=== PATIENT | female | born 1990 | race African-American/Black ===

== ENCOUNTER 2022-02-23 00:35 | Outpatient (CLI) | payer BC, MEDICAID, SELFPAY ==
[2022-02-23] VITALS (79 sets, daily range): BP systolic 108–144; BP diastolic 58–82; PULSE 75–114; RESP 15–16; TEMP 36.2–36.6; O2SAT 87–100; BMI 38.9
[2022-02-23] MEDS: oxytocin 30 UNIT/500 ML BAG 600 UNIT IV (00:35)
[2022-02-23] MEDS: lactated ringers 1,000 ML 999 ML IV (00:35)
--- NOTE | 2022-02-23 00:35 | PC.NURSE ---
Baby Les Thomas arrived with patient. Mother delivered on 02/22/22 at 2220. This was a planned unassisted freebirth. Placenta delivered at 2225 and significant bleeding was observed. Patient arrived via private vehicle at 0035. Heavy bleeding observed, IV inserted, LR bolus and PP oxytocin started. Baby was assessed by MACIEJ Silva Vitals: Heartrate 133 Respirations 40 SpO2 100% on RA Temperature 98.6 Rectal. Physical Assessment Unremarkable, no distress noted. Baby not admitted per parental wishes. Nursing care provided to mother.
[2022-02-23 00:54] LABS: Basophils % 0.2 %; Hemoglobin 9.7 g/dL (11.5-15.3); Lymphocytes # 1.8 10^3/uL (0.8-4.8); Lymphocytes % 8.5 %; Mean Corpuscular HGB Conc 32.3 g/dL (30.0-36.0); Mean Corpuscular Hemoglobin 27.4 pg (28.0-34.0); Mean Corpuscular Volume 84.7 fl (81-99); Mean Platelet Volume 11.2 fL (7.4-10.4); Monocytes # 0.7 10^3/uL (0.2-0.9); Monocytes % 3.3 %; Neutrophils # 17.91 10^3/uL (1.8-7.7); Neutrophils % 86.9 %; Nucleated Red Blood Cells % 0 %; Platelet Count 286 10^3/cmm (130-400); Red Blood Count 3.54 10^6/uL (4.1-5.3); Red Cell Distribution Width 13.9 % (12.1-15.1); White Blood Count 20.6 10^3/uL (4.0-10.0)
[2022-02-23] MEDS: dextrose 5%-lactated ringers 1,000 ML 125 ML IV (03:14)
[2022-02-23] MEDS: acetaminophen 325 mg Tablet 650 MG PO ×2 (04:44→11:17)
--- NOTE | 2022-02-23 08:51 | P.HP_ITS ---
Providers/Chief Complaint Admitting Physician: Carissa Garcia MD Chief Complaint: Delivered at home, bleeding HPI ENVIRONMENTAL SERVICE AIDE History of Present Illness Diana Thomas is a 31 year old female Present Details : 6 Para: 6 Labs Rubella: Unknown RPR: Unknown GBS: Unknown Medications/Allergies Home Medications Medication Instructions Recorded Confirmed Last Taken Type Floradix 10 ml PO BID 02/23/22 02/23/22 02/22/22 History + Iron 1 tab PO DAILY 02/23/22 02/23/22 02/22/22 History Allergies Allergy/AdvReac Type Severity Reaction Status Date / Time No Known Allergies Allergy Verified 02/23/22 02:44 Vitals/I&O/Wt Last Vital Signs Temp 97.9 F 02/23/22 00:47 Pulse 89 02/23/22 08:18 Resp 15 02/23/22 00:47 BP 131/73 02/23/22 08:18 Pulse Ox 100 02/23/22 04:20 O2 Del Method 02/23/22 00:47 Weight last 48 hrs Weight 234 lb Weight 234 lb Physical Exam Resp: EFFORT & INSPECTION: Yes able to speak in complete sentences and Yes symmetric chest movement Cardio: RATE: regular rate RHYTHM: regular rhythm : EXTERNAL FEMALE EXAM: Yes normal appearance of the urethra, No externally tender and No laceration BIMANUAL EXAM - VAGINA & UTERUS: No cervical motion tenderness, No uterine size normal, Yes uterine mobility normal, No Uterine tenderness, Yes enlarged (Firm fundus still above the umbilicus) and No Uterus displaced OB/EXTERNAL & SPECULUM: external exam normal, Active bleeding present small/minimal and Cervical os open; no tissue noted in vagina, no vaginal laceration and vaginal bleeding Psych: COMMON NORMALS: mental status grossly normal, Normal thought process present, cooperative, normal affect, speech normal and activity/motor behavior normal MOOD & AFFECT: No depressed mood and No anxious INSIGHT: Good insight present (Psych) Data 02/23/22 10:29 Attestations Medical Necessity Statement*: Status post home complicated by hemorrhage that occurred off site. Upon arrival no way to assess quantity of blood loss and did not have pre-delivery Hgb. Current Hgb was indicative of acute anemia. Observation and management warranted. Antipated discharge for PPD #1. Coding Level of Care Code Acute Radio Frequency Design Engineer for Chg Fwd Exam Expanded Problem Focused Medical Decision Making Low Complexity Time Spent (min) 60 Comment PP Hemorrhage occurred s/p home- prior to reaching the hosp. Stable upon arrival.
[2022-02-23] MEDS: iron sucrose 500 MG in sodium chloride 0.9% 250 ML 68.75 MG IV (09:31)
[2022-02-23 10:45] LABS: Hematocrit 25.3 % (37.0-47.0); Mean Corpuscular HGB Conc 31.6 g/dL (30.0-36.0); Mean Corpuscular Hemoglobin 27.3 pg (28.0-34.0); Mean Corpuscular Volume 86.3 fl (81-99); Mean Platelet Volume 11.2 fL (7.4-10.4); Platelet Count 237 10^3/cmm (130-400); Red Blood Count 2.93 10^6/uL (4.1-5.3); Red Cell Distribution Width 13.8 % (12.1-15.1); White Blood Count 14.7 10^3/uL (4.0-10.0)
[2022-02-23] MEDS: docusate sodium 100 mg Capsule PO (11:17)
== END 2022-02-23 15:51 | disposition home or self-care (01) ==
LOC: OPOB 00:44 → OBGYN 00:45
PROVIDERS: Visit Provider Obstetrics & Gynecology
DX: O80 Encounter for full-term uncomplicated delivery (principal)
CPT/HCPCS: 36415; 85025; 85027; 86850; 86900; 99211; J1756; J7050

== ENCOUNTER 2025-06-06 19:45 | Emergency (ER) | payer BC, MEDICAID, SELFPAY ==
--- OUTSIDE RECORDS SUMMARY | 2025-06-06 19:52 | XMS_ITS | Clinical Summary ---
Author Organization [facility] Address [address] [place] [address] Phone Care Team Providers Care Route Clerk Name Role Phone Unavailable Primary Care Provider Unavailabl e Allergies No known active allergies Medications vits15/iron/fo lic/dss ( VIT 47-OOVO-YPOFJ- DSS ORAL) Take by mouth. Activ e ferrous sulfate (IRON ORAL) Take 3 Capsules by mouth daily. Floradix Active glycerin-witch Shirlene (AER WITCH SHIRLENE) 12.5-50 % Pads, Medicated Apply 1 Each to affected area see administration instructions. 4 Active modified lanolin (LANOLIN HFA) 100 % Cream Apply to affected area see administration instructions. 4 Active acetaminophen (TYLENOL) 325 mg tablet Take 2 Tablets (650 mg) by mouth every 6 hours as needed for Other (See Comment) (See admin instructions). 4 Active Active Problems Problem Noted Date Diagnosed Date care and examination of lactating mot her 03/10/2024 (spontaneous vaginal delivery) 03/08/2024 Urinary frequency 03/03/2024 Anemia in , third trimester 12/30/2023 Elevated glucose tolerance test 12/29/2023 Tetanus, diphtheria, and jaden llular pertussis (Tdap) vaccination declined 12/29/2023 care, subsequent , third trime ster 12/15/2023 Anemia affecting in second trimester 0 11/10/2023 Grand multiparity 11/10/2023 History of hemorrhage, currently preg nant 11/10/2023 BMI 35.0-39.9, pre- BMI 38.3 11/10/2023 Encounters Date Type Department Care Team Description 04/12/2025 External Device Data [facility] ABSTRACTION Provider, Abstract 04/12/2025 External Device Data [facility] Provider, Abstract 04/05/2025 External Device Data [facility]CTION Provider, Abstract from Last 3 Months Social History Tobacco Use Types Packs/Day Years Used Date Smoking Tobacco: Never Smokeless Tobacco: Never Tobacco Cessation:Counseling Given: Not Answered Alcohol Use Standard Drinks/Week Comments Not Currently 0 (1 standard drink = 0.6 oz pur e alcohol) Feeling Safe Answer Date Recorded Are you in a relationship wi th someone who hurts you emotionally and/or physically? Patient unable to answer 03/07/2024 Comments No Sex and Gender Information Value Date Recorded Sex Assigned at Not on file Legal Sex Female 9:19 AM CDT Gender Identity Not on file Sexual Orientation Not on file Last Filed Vital Signs Vital Sign Reading Time Taken Comments Blood Pressure 116/82 04/21/2024 1:03 PM EXHAUST TENDER Pulse 75 04/21/2024 1:03 PM EXHAUST TENDER Temperature 37.1 C (98.8 F) 03/10/2024 8:11 AM CDT Respiratory Rate 18 03/10/2024 8:11 AM CDT Oxygen Saturation 96% 04/21/2024 1:03 PM EXHAUST TENDER Inhaled Oxygen Concentration - - Weight 99.9 kg (220 lb 3.2 oz) 04/21/2024 1:03 P M EXHAUST TENDER Height 162.6 cm (5' 4 ) 04/21/2024 1:03 PM EXHAUST TENDER Body Mass Index 37.8 04/21/2024 1:03 PM EXHAUST TENDER Plan of Treatment Health Maintenance Due Date Last Done Comments DTAP/TDAP/TD VACCINES (1 - Tdap) 2009 HEPATITIS B VACCINES (1 of 3 - 19+ 3-dose series) 08/15 INFLUENZA VACCINE (#1) 2025 PAP SMEAR 04/21/2027 04/21/2024 CERVICAL CANCER SCREENING 04/21/2029 HPV/Cotest (21-29) 04/21/2029 04/21/2024 HPV/Cotest (30-65) 04/21/2029 04/21/2024 HPV VACCINES (No Doses Required) Completed Procedures Procedure Name Priority Date/Time Associated Diagnosis Comments CERV/VAG CYTO SCREEN PAP W/HPV Routine 04/21/2024 1:35 PM EXHAUST TENDER Cervical cancer screening from Last 3 Months or Most Recently Relevant to Health Maintenance Results * CERV/VAG CYTO SCREEN PAP W/HPV (04/21/2024 1:35 PM EXHAUST TENDER) CLINICAL INFORMATION [facility] [place] Comment:None given LAST MENSTRUAL PERIOD [facility] [place] Comment:NONE GIVEN PREV PAP: [facility] [place] Comment:NONE GIVEN PREV BX: [facility] [place] Comment:NONE GIVEN SOURCE [facility] [place] Comment:Endocervix ADEQUACY: [facility] [place] Comment: Satisfactory for evaluation. Endocervical/transformation zone component present. Age and/or menstrual status not provided PAP INTERP [facility] [place] Comment: Cytology Results: Negative for intraepithelial lesion or malignancy. COMMENT (PAP TEST) [facility] [place] Comment: This Pap test has been evaluated with computer assisted technology. NUCLEAR CONTROL ROOM OPERATOR: Maryse Nguyen Comment: MEJIA PETERSEN(ASCP) CT screening location: [place] [address] [place] [address] EXPLANATORY NOTE [facility] Nguyen Comment: EXPLANATORY NOTE: The Pap is a screening test for cervical cancer. It is not a diagnostic test and is subject to false negative and false positive results. It is most reliable when a satisfactory sample, regularly obtained, is submitted with relevant clinical findings and history, and when the Pap result is evaluated along with historic and current clinical information. HPV E6/E7 Not Detected Not Detected [facility] [place] Comment: Methodology: Blanket Cutting Machine Operator-Mediated Amplification This assay detects E6/E7 viral messenger RNA (mRNA) from 14 high-risk HPV types (16,18,31,33,35,39,45,51,52,56,58,59,66,68). Cervical sources are required for HPV testing. If a vaginal source from a patient who has had a total hysterectomy with removal of cervix was submitted, please contact the testing laboratory for alternative testing options. For additional information, please refer to http://education.Flit/faq/TPA969r6 (This link if provided for information/ educational purposes only.) Test Performed at: [facility] [id number] [id number] Ana LAURA Genital SWAB OF ENDOCERVIX / Unknown 04/21/2024 1:35 PM EXHAUST TENDER 04/22/2024 6:44 AM EXHAUST TENDER Mendy Ley OMAR PATHOLOGY/CYTOLOGY ORDERABLE S Final Result [facility] [phone] [facility] [address] [id number] from Last 3 Months or Most Recently Relevant to Health Maintenance Insurance [facility] MEDICAID Advance Directives For more information, please contact: [phone] * Full Code (Latest Code Status on File) Date Activated Date Inactivated Comments 03/08/2024 5:18 PM 03/10/2024 4:07 PM * Full Code Date Activated Date Inactivated Comments 03/05/2024 1:43 AM 03/05/2024 5:16 AM
[2025-06-06 19:53] VITALS: BP 144/72; PULSE 82; RESP 16; TEMP 36.8; O2SAT 100; BMI 39.1
--- NOTE | 2025-06-06 21:11 | USR_ITS ---
PROCEDURE INFORMATION: Exam: US , Transvaginal and US Duplex Artery or Vein, Ovaries, Limited Exam date and time: 06/06/2025 10:17 PM Age: 34 years old Clinical indication: Lmp or gestational age (in weeks): 11w 4d by reported lmp; Antepartum complications; ; [id number] reporting with vaginal bleeding, cramping x 2 weeks; Additional info: 12 weeks , bleeding, cramping LABS AND CLINICAL REPORTS: Gestational age (Established): 11 w 4 d Estimated due date (Established): 12/22/2025 TECHNIQUE: Imaging protocol: Real-time transvaginal obstetrical ultrasound of the maternal pelvis and a first trimester with image documentation. Transvaginal imaging was used for better evaluation of the fetus, adnexa, and/or cervix. Real-time duplex ultrasound scan of the arterial or venous flow of the ovaries with B-mode, color Doppler flow and spectral waveform analysis, Limited Duplex. Duplex exam was performed to evaluate for torsion and other vascular conditions. COMPARISON: No relevant prior studies available. FINDINGS: Other findings: Spectral analysis of the bilateral ovaries was performed to exclude ovarian torsion in the setting of pelvic pain/cramping. GESTATION: Gestation: A single intrauterine gestation is noted. Of note, the gestational sac is somewhat amorphous in appearance. A 3.3 mm mixed echogenic structure is seen within the gestational sac, which does not clearly represent a formed pole. No yolk sac is identified. heart rate: Non identified Placenta: Unremarkable. No subchorionic bleed. Amniotic fluid (Qualitative): Amniotic fluid is normal for gestational age. BIOMETRY: Mean sac diameter: 1.26 cm. EGA (MSD) is 6 w 1 d MATERNAL: Uterus: The endometrium measures up to 2.2 cm in thickness. Right ovary/adnexa: Confirmed right ovarian blood flow. Normal arterial inflow on spectral sonography. Left ovary/adnexa: Confirmed left ovarian blood flow. Normal arterial inflow on spectral sonography. Intraperitoneal space: No intraperitoneal free fluid. PROCEDURE INFORMATION: Exam: US First Trimester, Transabdominal. Additional Gestation. Exam date and time: 06/06/2025 10:17 PM Age: 34 years old Clinical indication: Lmp or gestational age (in weeks): 11w 4d by reported lmp; Antepartum complications; ; [id number]-[id number] reporting with vaginal bleeding, cramping x 2 weeks; Additional info: 12 weeks , bleeding, cramping TECHNIQUE: Imaging protocol: Real-time transabdominal obstetrical ultrasound of the maternal pelvis and a first trimester with image documentation. Additional gestation was evaluated. COMPARISON: No relevant prior studies available. FINDINGS: MATERNAL: Uterus: Uterus measures 11.39 cm x 7.26 cm x 7.35 cm. The uterus is anteverted. Right ovary/adnexa: Right ovary measures 3.7 cm x 2.3 cm x 3.7 cm. Right ovarian volume is 16.4 mL. No paraovarian fluid is noted. No right ovarian mass. Left ovary/adnexa: Left ovary measures 3.8 cm x 2.2 cm x 3.2 cm. Left ovarian volume is 13.9 mL. No paraovarian fluid is noted. No left ovarian mass. Other findings: Transabdominal evaluation demonstrates limited sonographic window and limited characterization of the uterine and adnexal structures, necessitating need for transvaginal evaluation. US/US OB transvaginal [id number] IMPRESSION: 1. Single intrauterine gestational sac with 3 mm mixed echogenic focus, without identifiable heart tones. Given estimated gestational sac diameter, findings are consistent with early of 6 week 1 day. Of note, this is substantially discordant with provided gestational age via LMP. Correlate with patient history. Recommend follow-up viability pelvic ultrasound in 7-10 days. Recommend follow-up with obstetric/gynecology. 2. Normal arterial blood flow confirmed to both ovaries. No evidence of torsion. IMPRESSION: Normal appearing uterus and adnexa without morphologic abnormality. Single intrauterine gestation as described and transvaginal evaluation.
--- NOTE | 2025-06-06 21:15 | W.ED.FEMALGU ---
HPI - Female Genitourinary General: Chief complaint: Urogenital-Female Stated complaint: Cramping, possible Miscarriage Time Seen by Provider: 06/06/25 20:59 Source: patient Mode of arrival: ambulatory Limitations: no limitations History of Present Illness: Patient is a 34-year-old female, A1 who presents to the emergency department complaining of lower abdominal cramping for 2 days, associated with vaginal bleeding. She states initially the vaginal bleeding was light and consistent with spotting, it was light pink and appearance but it has now become more dark red and she thinks that she has noticed clots. The cramping has been constant, describes it as more of an annoying ache than any significant pain. She does not recall this pain or symptoms being similar to her prior miscarriage, that she states was years ago. No OB establishment to this point, but she tells me she has been asymptomatic otherwise prior to 2 days ago. She is not endorsing any lightheadedness or dizziness with ambulation, no nausea or vomiting, no urinary symptoms. She tells me that she has a history of anemia and can tell when her blood count is low because she will feel short of breath, she is not reporting shortness of breath at this time. MD elicited complaint: vaginal bleeding and other (Abdominal cramping, 12 weeks gestation ) Onset (ago): day(s) (2) Severity: mild Quality of pain: aching Associated symptoms: Deny abdominal pain, headache(s), nausea or vaginal discharge Related Data Home Medications ?Medication ?Instructions ?Recorded ?Confirmed Floradix 10 ml PO BID 02/23/22 02/23/22 + Iron 1 tab PO DAILY 02/23/22 02/23/22 Allergies Allergy/AdvReac Type Severity Reaction Status Date / Time No Known Allergies Allergy Verified 02/23/22 02:44 Review of Systems General: Reports: 10 or more systems reviewed and unremarkable except in HPI and below Const: Denies: fever(s), chills, change in appetite, change in weight or diaphoresis ENMT: Denies: throat pain or hoarseness Card: Denies: chest pain, palpitations or lightheadedness Resp: Denies: dyspnea, productive cough or wheezing GI: Reports: GI cramping; Denies: abdominal pain, nausea, vomiting, diarrhea, constipation, bloating, change in stool character or hematochezia : Reports: vaginal bleeding; Denies: flank pain, difficulty voiding, dysuria, urinary frequency, urinary urgency, vaginal odor or vaginal discharge Musc: Reports: back pain; Denies: neck pain Skin/Breast: Denies: rash or new lesions Neuro: Denies: headache(s) or dizziness Physical Exam Const: COMMON NORMALS: no acute distress, patient oriented x3, no limitations, alert and well nourished GENERAL APPEARANCE: cooperative ORIENTATION/CONSCIOUSNESS: Yes awake Neck/C-Spine: COMMON NORMALS: full ROM, supple and no meningeal signs Resp: COMMON NORMALS: normal respiratory effort, No retractions, No use of accessory muscles and clear to auscultation bilaterally AUSCULTATION: clear to auscultation bilaterally, no crackles, no rales, no rhonchi and no wheezes Cardio: COMMON NORMALS: regular rate, regular rhythm, No gallops present (Cardio), No clicks present (Cardio), No murmurs present (Cardio) and No rub (Cardio) RATE: regular rate RHYTHM: regular rhythm GI: COMMON NORMALS: Soft to palpation, No hepatosplenomegaly present and no masses AUSCULTATION: Yes normoactive bowel sounds PALPATION: Yes Soft to palpation, No Guarding due to palpation present (GI), No Rigid due to palpation and Yes No hepatosplenomegaly present RECTAL EXAM: deferred OTHER: Mild lower abdominal tenderness to palpation Extremity: COMMON NORMALS: normal to inspection and full ROM Neuro: COMMON NORMALS: patient oriented x3, moves all extremities, no focal motor deficits and no sensory deficits noted SENSORIUM/ORIENTATION: Yes alert MENINGEAL SIGNS: Yes no meningeal signs Psych: COMMON NORMALS: mental status grossly normal, cooperative and speech normal SPEECH: Yes normal speech Skin: COMMON NORMALS: no rashes or lesions noted GENERAL SKIN EXAM: no rashes or lesions noted Course Vital Signs: Vital signs: Vital Signs Temperature 98.2 F 06/06/25 19:53 Pulse Rate 79 06/06/25 22:00 Respiratory Rate 16 06/06/25 22:00 Blood Pressure 144/72 06/06/25 19:53 Pulse Oximetry 98 06/06/25 22:00 Oxygen Delivery Me thod Room Air 06/06/25 22:00 MDM - Female Medical Decision Making Patient is A1 presenting stating that she was 12 weeks , was having 2 days of lower abdominal cramping and vaginal bleeding. Physical exam overall unremarkable she had some lower abdominal tenderness to palpation, vitals have been stable she overall is nontoxic-appearing. Lab work reassuring she is not anemic, hCG quantitative is 1338 which would be significantly lower than her reported age of 12 weeks gestation, however the ultrasound transvaginally shows that the gestational sac diameter is consistent with an early of 6 weeks and 1 day, in which 1338 quantitative hCG would be within normal range. This is a threatened , perhaps missed and she will be referred to OB for repeat viability ultrasound and a week's time. No further action necessary in the ED at this time however she is encouraged to come back if her bleeding worsens, pain worsens, or she develops any fever or other new symptoms. She agrees with this plan at this time. Lab Data 06/06/25 21:21 06/06/25 21:21 Radiology Impressions Transvaginal US 06/06/25 21:11 IMPRESSION: 1. Single intrauterine gestational sac with 3 mm mixed echogenic focus, without identifiable heart tones. Given estimated gestational sac diameter, findings are consistent with early of 6 week 1 day. Of note, this is substantially discordant with provided gestational age via LMP. Correlate with patient history. Recommend follow-up viability pelvic ultrasound in 7-10 days. Recommend follow-up with obstetric/gynecology. 2. Normal arterial blood flow confirmed to both ovaries. No evidence of torsion. IMPRESSION: Normal appearing uterus and adnexa without morphologic abnormality. Single intrauterine gestation as described and transvaginal evaluation. Laboratory Results WBC 6.84 10^3/uL (3.29-11.43) 06/06/25 21:21 RBC 4.16 10^6/uL (3.85-5.65) 06/06/25 21:21 Hgb 11.70 g/dL (11.27-16.99) 06/06/25 21:21 Hct 35.6 % (36-47) L 06/06/25 21:21 MCV 85.6 fl (85-98) 06/06/25 21:21 MCH 28.1 pg (27-33) 06/06/25 21:21 MCHC 32.9 g/dL (30-55) 06/06/25 21:21 RDW 12.8 % (12.1-15.1) 06/06/25 21:21 Plt Count 313 10^3/cmm (157-399) 06/06/25 21:21 MPV 9.9 fL (7.4-10.4) 06/06/25 21:21 Neut % (Auto) 56.0 % 06/06/25 21:21 Lymph % (Auto) 33.5 % 06/06/25 21:21 [place] % (Auto) 7.5 % 06/06/25 21:21 Eos % (Auto) 2.2 % 06/06/25 21:21 Baso % (Auto) 0.7 % 06/06/25 21:21 Neut # (Auto) 3.83 10^3/uL (1.8-7.7) 06/06/25 21:21 Lymph # (Auto) 2.3 10^3/uL (0.8-4.8) 06/06/25 21:21 [place] # (Auto) 0.5 10^3/uL (0.2-0.9) 06/06/25 21:21 Eos # (Auto) 0.2 10^3/uL (0.0-0.8) 06/06/25 21:21 Baso # (Auto) 0.1 10^3/uL (0.0-0.1) 06/06/25 21:21 Nucleated RBC % (auto) 0 % 06/06/25 21:21 Nucleated RBCs # 0.0 /100WBC 06/06/25 21:21 Sodium 137 mmol/L (136-145) 06/06/25 21:21 Potassium 3.4 mmol/L (3.5-5.1) L 06/06/25 21:21 Chloride 103 mmol/L (98-107) 06/06/25 21:21 Carbon Dioxide 23 mmol/L (22-29) 06/06/25 21:21 Anion Gap 14.4 (5-19) 06/06/25 21:21 BUN 7 mg/dL (6-20) 06/06/25 21:21 Creatinine 0.6 mg/dL (0.5-0.9) 06/06/25 21:21 GFR Calculation 138.5 mL/min (90-130) H 06/06/25 21: Glucose 99 mg/dL (65-115) 06/06/25 21: Calculated Osmolality 282 mOsm/kg (285-295) L 06/06/25 21: Calcium 9.7 mg/dL (8.5-10.5) 06/06/25 21: Total Bilirubin 0.4 mg/dL (0.15-1.2) 06/06/25: AST 18 U/L (0-32) 06/06/25 21: ALT 15 U/L (0-33) 06/06/25 21: Alkaline Phosphatase 40 U/L (35-105) 06/06/25: Total Protein 7.0 g/dL (6.6-8.7) 06/06/25: Albumin 4.6 g/dL (3.5-5.2) 06/06/25: Globulin 2.4 g/dL (1.3-4.6) 06/06/25 21: Ser , Semi-Qnt 1338.00 mIU/mL 06/06/25 21: Urine Color Yellow (Yellow) 06/06/25 21: Urine Appearance Clear (CLEAR) 06/06/25 21: Urine pH 5.5 (5-7) 06/06/25 21: Ur Specific [place] 1.006 (1.005-1.030) 06/06/25 21: Urine Protein Negative (Negative) 06/06/25: Urine Glucose (UA) Negative (Normal) 06/06/25 21: Urine Ketones Negative (Negative) 06/06/25 21: Urine Blood 3+ (Negative) A 06/06/25 21: Urine Nitrate Negative (Negative) 06/06/25 21: Urine Bilirubin Negative (Negative) 06/06/25 21: Urine Urobilinogen 0.2 mg/dL (Negative) 06/06/25 21: Ur Leukocyte Esterase Negative (Negative) 06/06/25 21: Urine RBC 51-100 /hpf (0-2) H 06/06/25 21: Urine WBC 0-5 /hpf (0-5) 06/06/25 21:02 Ur Squamous Epith Cells 0-5 /hpf (0-5) 06/06/25 21:02 Amorphous Sediment Not Reportable 06/06/25 21:02 Urine Bacteria None seen /hpf (NONE) 06/06/25 21:02 Hyaline Casts 0.40 /lpf 06/06/25 21:02 Blood Type AB Positive 06/06/25 21:21 Rho(D) Type Rh positive 06/06/25 21:21 Antibody Screen Negative 06/06/25 21:21 All radiology interpretation(s) finalized by discharge Discharge Plan Discharge Patient Disposition: Home Clinical Impression: Threatened Condition: Stable Prescriptions: No Action Floradix 10 ml PO BID + Iron 1 tab PO DAILY Discharge Orders: Discharge ED (Routine); Ordered 06/06/25 Ordered By: Mp Crow Patient Instructions: Patient Portal & [place] Instructions Activity Restrictions/Additional Instructions: Threatened Discharge Instructions Your Diagnosis You have been diagnosed with threatened , which means you are experiencing bleeding in early . Your test (hCG level of 1,338) and ultrasound findings are consistent with an early at approximately 6 weeks and 1 day. Because you felt you were further along than the ultrasound suggests, you will need a follow-up ultrasound to confirm the is developing normally. What This Means Bleeding in early is common and does not always mean you will lose the . However, it is important to monitor your symptoms closely and follow up with your obstetrics provider to ensure the is progressing as expected. Activity and Rest - Get plenty of rest and avoid strenuous activities, heavy lifting, and vigorous exercise - Avoid sexual intercourse until cleared by your obstetrics provider - You may continue light daily activities as tolerated What to Expect - Some light bleeding or spotting may continue - Mild cramping similar to menstrual cramps is common - symptoms like nausea, breast tenderness, and fatigue may continue When to Return to the Emergency Department Immediately Seek immediate medical attention if you experience any of the following: - Heavy bleeding: soaking through two or more large pads per hour for two hours in a row - Severe abdominal or pelvic pain that is not relieved by [id number] pain medication - Fever (temperature above 100.4?F or 38?C), chills, or feeling sick - Foul-smelling vaginal discharge - Dizziness, lightheadedness, or fainting - Shoulder pain (this could indicate internal bleeding) - Any other symptoms that concern you Follow-Up Care - You have an appointment scheduled with Obstetrics and Gynecology in one week for a repeat ultrasound to check on your - It is very important that you attend this appointment - If you have not received confirmation of your appointment time, please call the obstetrics office within 1-2 business days - Bring a list of any questions or concerns to your appointment Medications - You may take acetaminophen (Tylenol) for mild cramping or discomfort as directed on the package - Avoid ibuprofen (Advil, Motrin) and aspirin unless specifically instructed by your obstetrics provider - Continue taking your vitamins Additional Information - Your blood type and Rh status were checked today. If you are Rh-negative, your obstetrics provider will discuss whether you need RhoGAM injection - Keep yourself well-hydrated by drinking plenty of water - Eat a balanced, nutritious diet Questions or Concerns If you have questions before your scheduled appointment, contact your obstetrics provider's office. If you experience any of the warning signs listed above, go to the emergency department immediately rather than waiting for office hours. Important Reminder The uncertainty about your dating means it is essential that you attend your follow-up appointment. The repeat ultrasound will help determine if the is developing normally and confirm the correct gestational age. Print Language: Omani Coding Level of Care Code ED Integrated Marketing Manager for [employer] [facility]
[2025-06-06 21:19] LABS: Glucose Urine UA Negative (Normal); Nitrate Urine Negative (Negative); Specific Gravity, Urine 1.006 (1.005-1.030)
[2025-06-06 21:23] LABS: Add Urine Microscopic? YES
[2025-06-06 21:33] LABS: Hematocrit 35.6 % (36-47); Hemoglobin 11.70 g/dL (11.27-16.99); Mean Corpuscular HGB Conc 32.9 g/dL (30-55); Mean Corpuscular Hemoglobin 28.1 pg (27-33); Mean Corpuscular Volume 85.6 fl (85-98); Nucleated Red Blood Cells % 0 %; Platelet Count 313 10^3/cmm (157-399); Red Blood Count 4.16 10^6/uL (3.85-5.65); White Blood Count 6.84 10^3/uL (3.29-11.43)
[2025-06-06 22:00] VITALS: PULSE 79; RESP 16; O2SAT 98
[2025-06-06 22:03] LABS: Alanine Aminotransferase 15 U/L (0-33); Albumin Level 4.6 g/dL (3.5-5.2); Alkaline Phosphatase 40 U/L (35-105); Anion Gap 14.4 (5-19); Aspartate Amino Transferase 18 U/L (0-32); Blood Urea Nitrogen 7 mg/dL (6-20); Calcium 9.7 mg/dL (8.5-10.5); Carbon Dioxide 23 mmol/L (22-29); Chloride 103 mmol/L (98-107); Globulin 2.4 g/dL (1.3-4.6); Glucose 99 mg/dL (65-115); Osmolality Calculated 282 mOsm/kg (285-295); Potassium 3.4 mmol/L (3.5-5.1); Sodium 137 mmol/L (136-145); Total Protein 7.0 g/dL (6.6-8.7)
== END 2025-06-06 23:51 | disposition home or self-care (01) ==
PROVIDERS: Emergency Provider Physician Assistant
DX: O20.0 Threatened abortion (principal); Z3A.12 12 weeks gestation of pregnancy
CPT/HCPCS: 36415; 76817; 80053; 81001; 84702; 85025; 86850; 86900; 87086; 99284